=== PATIENT | female | born 1990 | race African-American/Black ===

== ENCOUNTER 2020-05-22 13:15 | Emergency (ER) | payer SELFPAY ==
[~2020-05-22] VITALS: Ht 167.6 cm; Wt 72.6 kg
--- NOTE | 2020-05-22 13:20 | NUR ---
Pt was triaged and seen by the ERMD in the hallway on the EMS gurney and placed in the ER waiting room because there are no ER beds available.
[2020-05-22 14:28] LABS: *BILIRUBIN,URIN NEGATIVE (NEGATIVE); *BLOOD, URINE 3+ (NEGATIVE); *CLARITY,URINE SLIGHTLY CLOUDY (CLEAR); *COLOR,URINE PINK (YELLOW); *KETONES,URINE NEGATIVE (NEGATIVE); *UROBILINOGEN,URINE 0.2 E.U./dl (NORMAL); LEUKOCYTE ESTERASE ,URINE TRACE (NEGATIVE); NITRITE, URINE NEGATIVE (NEGATIVE); UGLUCOSE NEGATIVE (NEGATIVE)
[2020-05-22 14:28] LABS: ALANINE AMINOTRANSFERASE 57 U/L (14-59); ALKALINE PHOSPHATASE 108 U/L (50-136); ASPARTATE AMINOTRANSFERASE 28 U/L (15-37); BASOPHILS % (AUTO) 0.2 % (0.0-2.0); BILIRUBIN,DIRECT 0.1 mg/dL (0.0-0.2); BILIRUBIN,TOTAL 0.3 mg/dL (0.2-1.0); CARBON DIOXIDE 23 mmol/L (21-32); CHLORIDE 105 mmol/L (98-107); CREATININE 0.7 mg/dL (0.6-1.3); EOSINOPHILS # (AUTO) 0.2 K/uL (0.0-0.7); EOSINOPHILS % (AUTO) 2.3 % (0.0-7.0); GLUCOSE 113 mg/dL (74-106); HEMATOCRIT 27.7 % (31.2-41.9); HEMOGLOBIN 8.4 g/dL (10.9-14.3); LIPASE 120 U/L (73-393); LYMPHOCYTES # (AUTO) 2.1 K/uL (20.0-40.0); LYMPHOCYTES % (AUTO) 21.5 % (20.5-51.5); MEAN CORPUSCULAR HEMOGLOBIN 18.7 uug (24.7-32.8); MEAN CORPUSCULAR HGB CONC 31 g/dL (32.3-35.6); MEAN CORPUSCULAR VOLUME 61.3 fL (75.5-95.3); MONOCYTES # (AUTO) 0.6 K/uL (2.0-10.0); MONOCYTES % (AUTO) 5.8 % (0.0-11.0); NEUTROPHILS % (AUTO) 70.2 % (38.5-71.5); PLATELET COUNT (AUTO) 368 K/uL (179-408); POTASSIUM 4.3 mmol/L (3.5-5.1); RED BLOOD CELL COUNT(AUTO) 4.51 MIL/uL (3.63-4.92); TOTAL PROTEIN, SERUM 7.8 g/dL (6.4-8.2); UREA NITROGEN, BLOOD 12 mg/dL (7-18); WHITE BLOOD COUNT (AUTO) 9.9 K/uL (3.8-11.8)
[2020-05-22 14:37] LABS: *AMPHETAMINE, URINE POSITIVE (NEGATIVE); *CANNABINOID, URINE NEGATIVE (NEGATIVE); *COCCAINE, URINE NEGATIVE (NEGATIVE); *OPIATE, URINE NEGATIVE (NEGATIVE); *PHENCYCLIDINE SCREEN,URINE NEGATIVE (NEGATIVE)
[2020-05-22] MEDS ORDERED: KETOROLAC TROMETHAMINE 30 MG INJ IM ONE (15:00)
[2020-05-22] MEDS ORDERED: ONDANSETRON ODT 4 MG TAB.RAPDIS SL ONE (15:00)
[2020-05-22] MEDS ORDERED: KETOROLAC TROMETHAMINE 30 MG INJ ONE (15:16)
[2020-05-22] MEDS ORDERED: ONDANSETRON ODT 4 MG TAB.RAPDIS ONE (15:16)
[2020-05-22 15:25] LABS: RBC,URINE TNTC /HPF (0-3)
[2020-05-22 15:26] LABS: BACTERIA,URINE FEW /HPF (NONE SEEN); SQUAMOUS EPITHELIAL CELL,UR MODERATE /HPF (NONE SEEN)
--- NOTE | 2020-05-22 15:30 | NUR ---
US done at bedside in room 3.
[2020-05-22] MEDS ORDERED: CEphaleXIN 500 MG CAPSULE PO ONE (16:15)
--- NOTE | 2020-05-22 16:20 | NUR ---
Pt was given verbal ACI by Dr. Robles but pt left before written ACI and Rx could be given.
== END 2020-05-22 16:26 | disposition home or self-care (01) ==
LOC: ER 13:15
DX: N83.291 Other ovarian cyst, right side (principal); N39.0 Urinary tract infection, site not specified; J45.909 Unspecified asthma, uncomplicated; Z59.0 Homelessness; R10.30 Lower abdominal pain, unspecified; F19.90 Other psychoactive substance use, unspecified, uncomplicated; D50.9 Iron deficiency anemia, unspecified
CPT/HCPCS: 36415; 83690; 85025; 86850; 86900; 86901; 87086; A4663; J1885; Q0162